=== PATIENT | female | born 1990 | race Caucasian/White ===

== ENCOUNTER 2018-05-15 11:58 | Emergency (ER) | payer OTHER, SELFPAY ==
[2018-05-15 12:03] VITALS: BP 106/70; PULSE 87; RESP 18; TEMP 36.9; O2SAT 100
--- NOTE | 2018-05-15 14:45 | ED.LOWEXIN ---
HPI - Extremity Injury (Lower) <Haley Witt PA-C - Last Filed: 05/15/18 20:35> General Chief Complaint: Extremity Injury, Lower Stated Complaint: KNEE PAIN Time Seen by Provider: 05/15/18 14:40 Source: patient Mode of arrival: ambulatory Limitations: no limitations History of Present Illness HPI Narrative: This 27-year-old female comes in due to a 10 year history of knee pain, right more than left. She states that 10 years ago, she injured her knee, bent down and felt a pop and had swelling and complete loss of range of motion with laxity. She states that she did see an orthopedist and had an MRI and no specific problem found. She states that she continues to have pain every day, constant at a low level, but significantly worse if she runs, bends or sitting on her knees. She states pain is around the kneecap area and also can be behind her knee. This has been worse recently after she has been running more and playing kick ball. She states she will have swelling in the knee after those activities, but denies any persistent laxity. She describes the pain as sharp at times. It does do better with rest and keeping pressure off of the area. She does not have other joint pain or swelling. No new fever or injury. She states that she already saw her PCP for this and was told it is runners knee, but she thinks there is something else contributing. She denies any possibility of as her is deployed and LMP finished yesterday Related Data Home Medications Medication Instructions Recorded Confirmed cetirizine [Zyrtec] 10 mg PO QPM 05/15/18 05/15/18 pseudoephedrine HCl [Sudogest] 1 tab PO QID PRN 05/15/18 05/15/18 sodium chloride [Deep Sea Nasal] 1 spray INTRANASAL DIRECTED 05/15/18 05/15/18 Allergies Allergy/AdvReac Type Severity Reaction Status Date / Time Sulfa (Sulfonamide Allergy Mild rash Unverified 03/11/18 12:40 Antibiotics) [SULFA (SULFONAMIDE ANTIBIOTICS)] vancomycin [VANCOMYCIN] Allergy Mild itching Unverified 03/11/18 12:40 Review of Systems <Haley Witt PA-C - Last Filed: 05/15/18 20:35> Review of Systems All systems reviewed & are unremarkable except as noted in HPI and below Exam <CONRAD He Last Filed: 05/15/18 20:35> Narrative Exam Narrative: GENERAL APPEARANCE: Patient sitting comfortably, in no distress. LUNGS: Clear to auscultation bilaterally. HEART: Rate and rhythm regular without murmur, normal S1 and S2, no S3 or S4. MUSCULOSKELETAL: Right knee there is no effusion. Very minimal tenderness inferior to the patella. She has full active and passive range of motion with minimal tenderness on full flexion. There is no laxity with varus, valgus stress or drawer testing Initial Vital Signs Initial Vital Signs: Vital Signs Temperature 98.4 F 05/15/18 12:03 Pulse Rate 87 05/15/18 12:03 Respiratory Rate 18 05/15/18 12:03 Blood Pressure 106/70 05/15/18 12:03 Pulse Oximetry 100 05/15/18 12:03 <DO Luis E Tesfaye Last Filed: 05/16/18 08:52> Initial Vital Signs Initial Vital Signs: Vital Signs Temperature 98.4 F 05/15/18 12:03 Pulse Rate 87 05/15/18 12:03 Respiratory Rate 18 05/15/18 12:03 Blood Pressure 106/70 05/15/18 12:03 Pulse Oximetry 100 05/15/18 12:03 Course <CONRAD He Last Filed: 05/15/18 20:35> Orders Ordered: ED Orders 05/15/18 14:56 XR knee RT 3V Stat Vital Signs - 8 hr 05/15/18 16:05 Pulse Rate 74 Respiratory Rate 16 Blood Pressure [Left Arm] 119/53 L Pulse Oximetry 100 <DO Luis E Tesfaye Last Filed: 05/16/18 08:52> Orders Ordered: ED Orders 05/15/18 14:56 XR knee RT 3V Stat Vital Signs - 8 hr 05/15/18 16:05 Pulse Rate 74 Respiratory Rate 16 Blood Pressure [Left Arm] 119/53 L Pulse Oximetry 100 MDM - Extremity Injury (Lower) <CONRAD He Last Filed: 05/15/18 20:35> Imaging Data knee: Radiologist's impression: View Report History [address] [address] XRay Report Signed Patient: Rachael Avila MR#: [id number] : 1990 Acct:[id number] Age/Sex: 27 / F Date of Service: 05/15/18 Loc: ED Accession Number: [id number] Procedure: XR knee RT 3V Ordering Provider: Haley Witt P.A-C PROCEDURE: XR KNEE RT 3V INDICATIONS: chronic pain s/p old injury TECHNIQUE: 3 views of the knee were acquired. COMPARISON: None. FINDINGS: Bones: No fractures or dislocations. No suspicious bony lesions. Soft tissues: Mild to moderate joint effusion. No suspicious soft tissue calcifications. IMPRESSION: Mild to moderate effusion. No visualized acute fracture or dislocation. However, if clinical concern and/or pain persist, short interval imaging followup in 7-10 days is recommended, as occult injury cannot be definitively excluded. Dictated by: Candelaria Morris M.D. on 05/15/2018 at 15:36 Approved by: Candelaria Morris M.D. on 05/15/2018 at 15:38 Discharge Plan Departure Patient Disposition: Home, Self-Care Clinical Impression: Knee pain Discharge Date/Time: 05/15/18 16:05 Interventions: ED Discharge Assessment Last Done: 05/15/18 16:05 Instructions: DI for Knee Pain Activity Restrictions/Additional Instructions: You should follow up with physical therapy as you've already planned. Also see your PCP as it may be helpful for you to see an orthopedist again given the chronicity of your pain and the xray finding of a little fluid in your knee joint today. It is possible that this pain is related to compensation for your old injury, so you may have chronic tendon and muscle weakness and strain (physical therapy should help with this). Continue your current medications. Wear the knee brace as needed/helpful. Prescriptions: No Action cetirizine [Zyrtec] 10 mg Tablet 10 mg PO QPM RF: 0 pseudoephedrine HCl [Sudogest] 60 mg tablet 1 tab PO QID PRN (Reason: Congestion) RF: 0 sodium chloride [Deep Sea Nasal] 0.65 % aerosol,spray 1 spray Intranasal DIRECTED RF: 0 Referrals: [email or web address] [Provider Group] <Cortney Alexis, - Last Filed: 05/16/18 08:52> Cosign ED Attending Cosignature Attestation: I was immediately available in the department for consultation. Documentation has been reviewed. I agree with assessment and plan.
--- NOTE | 2018-05-15 14:56 | DI.RAD.S_ITS ---
PROCEDURE: XR KNEE RT 3V INDICATIONS: chronic pain s/p old injury TECHNIQUE: 3 views of the knee were acquired. COMPARISON: None. FINDINGS: Bones: No fractures or dislocations. No suspicious bony lesions. Soft tissues: Mild to moderate joint effusion. No suspicious soft tissue calcifications. IMPRESSION: Mild to moderate effusion. No visualized acute fracture or dislocation. However, if clinical concern and/or pain persist, short interval imaging followup in 7-10 days is recommended, as occult injury cannot be definitively excluded. Dictated by: Candelaria Morris M.D. on 05/15/2018 at 15:36 Approved by: Candelaria Morris M.D. on 05/15/2018 at 15:38
--- NOTE | 2018-05-15 15:00 | ED_ITS ---
HPI - Extremity Injury (Lower) <Haley Witt PA-C - Last Filed: 05/15/18 20:35> General Chief Complaint: Extremity Injury, Lower Stated Complaint: KNEE PAIN Time Seen by Provider: 05/15/18 14:40 Source: patient Mode of arrival: ambulatory Limitations: no limitations History of Present Illness HPI Narrative: This 27-year-old female comes in due to a 10 year history of knee pain, right more than left. She states that 10 years ago, she injured her knee, bent down and felt a pop and had swelling and complete loss of range of motion with laxity. She states that she did see an orthopedist and had an MRI and no specific problem found. She states that she continues to have pain every day, constant at a low level, but significantly worse if she runs, bends or sitting on her knees. She states pain is around the kneecap area and also can be behind her knee. This has been worse recently after she has been running more and playing kick ball. She states she will have swelling in the knee after those activities, but denies any persistent laxity. She describes the pain as sharp at times. It does do better with rest and keeping pressure off of the area. She does not have other joint pain or swelling. No new fever or injury. She states that she already saw her PCP for this and was told it is runners knee, but she thinks there is something else contributing. She denies any possibility of as her is deployed and LMP finished yesterday Related Data Home Medications Medication Instructions Recorded Confirmed cetirizine [Zyrtec] 10 mg PO QPM 05/15/18 05/15/18 pseudoephedrine HCl [Sudogest] 1 tab PO QID PRN 05/15/18 05/15/18 sodium chloride [Deep Sea Nasal] 1 spray INTRANASAL DIRECTED 05/15/18 Allergies Allergy/AdvReac Type Severity Reaction Status Date / Time Sulfa (Sulfonamide Allergy Mild rash Unverified 03/11/18 12:40 Antibiotics) [SULFA (SULFONAMIDE ANTIBIOTICS)] vancomycin [VANCOMYCIN] Allergy Mild itching Unverified 03/11/18 12:40 Review of Systems <Haley Witt PA-C - Last Filed: 05/15/18 20:35> Review of Systems All systems reviewed & are unremarkable except as noted in HPI and below Exam <CONRAD He Last Filed: 05/15/18 20:35> Narrative Exam Narrative: GENERAL APPEARANCE: Patient sitting comfortably, in no distress. LUNGS: Clear to auscultation bilaterally. HEART: Rate and rhythm regular without murmur, normal S1 and S2, no S3 or S4. MUSCULOSKELETAL: Right knee there is no effusion. Very minimal tenderness inferior to the patella. She has full active and passive range of motion with minimal tenderness on full flexion. There is no laxity with varus, valgus stress or drawer testing Initial Vital Signs Initial Vital Signs: Vital Signs Temperature 98.4 F 05/15/18 12:03 Pulse Rate 87 05/15/18 12:03 Respiratory Rate 18 05/15/18 12:03 Blood Pressure 106/70 05/15/18 12:03 Pulse Oximetry 100 05/15/18 12:03 <DO Luis E Tesfaye Last Filed: 05/16/18 08:52> Initial Vital Signs Initial Vital Signs: Vital Signs Temperature 98.4 F 05/15/18 12:03 Pulse Rate 87 05/15/18 12:03 Respiratory Rate 18 05/15/18 12:03 Blood Pressure 106/70 05/15/18 12:03 Pulse Oximetry 100 05/15/18 12:03 Course <CONRAD He Last Filed: 05/15/18 20:35> Orders Ordered: ED Orders 05/15/18 14:56 XR knee RT 3V Stat Vital Signs - 8 hr 05/15/18 16:05 Pulse Rate 74 Respiratory Rate 16 Blood Pressure [Left Arm] 119/53 L Pulse Oximetry 100 <DO Luis E Tesfaye Last Filed: 05/16/18 08:52> Orders Ordered: ED Orders 05/15/18 14:56 XR knee RT 3V Stat Vital Signs - 8 hr 05/15/18 16:05 Pulse Rate 74 Respiratory Rate 16 Blood Pressure [Left Arm] 119/53 L Pulse Oximetry 100 MDM - Extremity Injury (Lower) <CONRAD He Last Filed: 05/15/18 20:35> Imaging Data knee: Radiologist's impression: View Report History [address] [address] XRay Report Signed Patient: Rachael Avila MR#: [id number] : 1990 Acct:[id number] Age/Sex: 27 / F Date of Service: 05/15/18 Loc: ED Accession Number: [id number] Procedure: XR knee RT 3V Ordering Provider: Haley Witt P.A-C PROCEDURE: XR KNEE RT 3V INDICATIONS: chronic pain s/p old injury TECHNIQUE: 3 views of the knee were acquired. COMPARISON: None. FINDINGS: Bones: No fractures or dislocations. No suspicious bony lesions. Soft tissues: Mild to moderate joint effusion. No suspicious soft tissue calcifications. IMPRESSION: Mild to moderate effusion. No visualized acute fracture or dislocation. However, if clinical concern and/or pain persist, short interval imaging followup in 7-10 days is recommended, as occult injury cannot be definitively excluded. Dictated by: Candelaria Morris M.D. on 05/15/2018 at 15:36 Approved by: Candelaria Morris M.D. on 05/15/2018 at 15:38 Discharge Plan Departure Patient Disposition: Home, Self-Care Clinical Impression: Knee pain Discharge Date/Time: 05/15/18 16:05 Interventions: ED Discharge Assessment Last Done: 05/15/18 16:05 Instructions: DI for Knee Pain Activity Restrictions/Additional Instructions: You should follow up with physical therapy as you've already planned. Also see your PCP as it may be helpful for you to see an orthopedist again given the chronicity of your pain and the xray finding of a little fluid in your knee joint today. It is possible that this pain is related to compensation for your old injury, so you may have chronic tendon and muscle weakness and strain ( physical therapy should help with this). Continue your current medications. Wear the knee brace as needed/helpful. Prescriptions: No Action cetirizine [Zyrtec] 10 mg Tablet 10 mg PO QPM RF: 0 pseudoephedrine HCl [Sudogest] 60 mg tablet 1 tab PO QID PRN (Reason: Congestion) RF: 0 sodium chloride [Deep Sea Nasal] 0.65 % aerosol,spray 1 spray Intranasal DIRECTED RF: 0 Referrals: [facility] [Provider Group] <Cortney Alexis, - Last Filed: 05/16/18 08:52> Cosign ED Attending Cosignature Attestation: I was immediately available in the department for consultation. Documentation has been reviewed. I agree with assessment and plan.
[2018-05-15 16:05] VITALS: BP 119/53; PULSE 74; RESP 16; O2SAT 100
== END 2018-05-15 16:05 | disposition home or self-care (01) ==
PROVIDERS: Emergency Provider Internal Medicine
DX: M25.569 Pain in unspecified knee (principal)
CPT/HCPCS: 73562; 99283

== ENCOUNTER 2018-07-08 12:01 | Day surgery (SDC) | payer OTHER, SELFPAY ==
[2018-07-08] VITALS (11 sets, daily range): BP systolic 96–121; BP diastolic 60–78; PULSE 71–98; RESP 10–20; TEMP 36.2–36.8; O2SAT 95–100; BMI 23.5
--- NOTE | 2018-07-08 | PATH_ITS ---
[facility] Accession Number: [id number] . 01 Material submitted: . PART A: GASTRIC BIOPSIES PART B: STOMACH BIOPSIES PART C: TERMINAL ILEUM PART D: RANDOM COLON . 01 Clinical history: . C: POSSIBLE ULCER . 02 Diagnosis: A. Designated Gastric Biopsies: Duodenal mucosa with no diagnostic abnormality. Negative for active inflammation, features of sprue, dysplasia or malignancy. . B. Stomach, Biopsies: Gastric antral and body mucosa with no diagnostic abnormality. No evidence of Helicobacter organisms on H/E stain. Negative for intestinal metaplasia, dysplasia or malignancy. . C. Terminal Ileum, Biopsy: Mild active ileitis; please see comment. Negative for granulomata, dysplasia or malignancy. . D. Random Colon, Biopsies: Colonic mucosa with no diagnostic abnormality. Negative for active or microscopic colitis. Negative for granulomata, dysplasia or malignancy. MRV/07/10/2018 . 02 Comment: Part C: The finding of mild active ileitis raises a differential diagnosis including infection, drug/toxin-induced injury and, in the appropriate clinical setting, idiopathic inflammatory bowel disease. . 02 Electronically signed: . Efrem Garza MD, PhD, Pathologist NPI- [id number] . 01 Gross description: . Part A: GASTRIC BIOPSIES: Received in formalin are 2 fragment(s) of mendosa, soft tissue measuring 0.4 x 0.3 x 0.1 cm to 0.1 x 0.1 x 0.1 cm submitted entirely in 1 cassette(s) Part B: STOMACH BIOPSIES: Received in formalin are multiple fragment(s) of mendosa, soft tissue measuring 0.5 x 0.2 x 0.1 cm in aggregate submitted entirely in 1 cassette(s) Part C: TERMINAL ILEUM: Received in formalin is 1 fragment(s) of mendosa, soft tissue measuring 0.4 x 0.4 x 0.3 cm submitted entirely in 1 cassette(s) Part D: RANDOM COLON: Received in formalin are multiple fragment(s) of mendosa, soft tissue measuring 0.5 x 0.5 x 0.1 cm in aggregate submitted entirely in 1 cassette(s) /CKI /CKI . 02 Pathologist provided ICD-10: R10.13, K52.9 . 02 CPT . 936829, 722477, 594282, 316043 Performed at: 01 [facility] [address] [id number] MD Alin aGrcias MD Phone: [phone] Performed at: 02 [facility] [address] [place] [id number] MD Fabrice Moser MD Phone: [phone]
[2018-07-08] MEDS: SODIUM CHLORIDE 0.9% 1,000 ML 21 ML IV ×2 (12:53→16:29)
[2018-07-08] MEDS: MIDAZOLAM 2 MG/2 ML VIAL 1 MG IV (13:18)
[2018-07-08] MEDS: fentaNYL 250 MCG/5 ML INJ IV (13:40)
[2018-07-08] MEDS: MIDAZOLAM 5 MG/5 ML VIAL IV (13:41)
--- NOTE | 2018-07-08 14:02 | SUR.PHASEII ---
Dr. Jackson unable to complete EGD/Colonscopy, is planning to re-do under general anesthesia. pt. and spouse aware of plan.
--- NOTE | 2018-07-08 16:16 | PM.OP.ENDO ---
Operative Date/Time/Diagnoses Date of procedure: 07/08/18 Time of procedure: 16:16 Pre-op diagnosis: See indications Procedure & Clinicians Study performed: EGD and colonoscopy Same procedure as scheduled: Yes Indications: Left lower quadrant pain, change in bowel movements, and bloating. Surgeon: Autumn Jackson Procedure Notes Procedure in detail: Procedure in detail: After informed consent was obtained the patient was placed in left lateral decubitus position. After moderate sedation attempts were made to pass the EGD scope but she woke from deeply sedated to struggling. It was elected therefore to delay until anesthesia was available to more deeply sedate her. After being intubated EGD scope was passed easily under direct visualization. Esophagus stomach and duodenum were carefully examined. On withdrawal retroflexed to the GE junction was performed. The scope was removed. The patient tolerated the procedure well. The colonoscope was then substituted. This was passed through the rectum and easily to the cecum IC valve and terminal ileum. On slow withdrawal the mucosa was carefully examined. Preparation was excellent. Scope was removed patient tolerated procedure well Blood loss none Complications none Sedation 2 mg Versed in the admit area due to anxiety. Eight additional mg given along with fentanyl 100 mcg prior to attempt at upper endoscopy. Remaining was done with general anesthesia. Findings EGD Normal esophagus Mild patchy antral erythema biopsied to rule out Helicobacter Prominent fullness in the greater curvature/fundus. This did not correspond to xiphoid impression by palpation. Normal duodenal bulb and sweep. Biopsies taken in the sweep to rule out celiac Colonoscopy Terminal ileum with 1 single erosion/ulcer. This was biopsied Normal colonoscopy to cecum. Biopsies taken randomly to rule out colitis. Otherwise negative colonoscopy to cecum Patient will follow up with Dr. Foster at her earliest convenience.
[2018-07-08] MEDS: LORazepam 2 MG/ML SYRINGE 0.25 MG IV (16:28)
[2018-07-08] MEDS: ONDANSETRON 4 MG/2 ML INJ IV (16:36)
--- NOTE | 2018-07-29 16:42 | PM.HP.1 ---
History of Present Illness Date Patient Seen: 07/08/18 Time Patient Seen: 08:43 Chief complaint: egd colonoscopy [id number] Narrative: Left lower quadrant pain bloating and GE reflux Patient History Medical History Allergic rhinitis (Acute) Breast abscess (Acute) Family & Social History Social History: household members spouse Tobacco & Substance use: Smoking Status Never smoker alcohol intake frequency 0-2 drinks per day Substance Use Type does not use Meds Home Medications Medication Instructions Recorded Confirmed Type cetirizine [Zyrtec] 10 mg PO QPM 05/15/18 07/08/18 History pseudoephedrine HCl [Sudogest] 1 tab PO QID PRN 05/15/18 07/08/18 History sodium chloride [Deep Sea Nasal] 1 spray INTRANASAL DIRECTED 05/15/18 07/08/18 History Allergies Allergy/AdvReac Type Severity Reaction Status Date / Time Sulfa (Sulfonamide Allergy Mild rash Verified 07/08/18 12:37 Antibiotics) [SULFA (SULFONAMIDE ANTIBIOTICS)] vancomycin [VANCOMYCIN] Allergy Mild itching Verified 07/08/18 12:37 Exam Vital Signs (past 8 hours): Oxygen Delivery Method Room Air Narrative Exam Narrative: Oropharynx free of lesion Chest clear to auscultation percussion Cardiac exam reveals no S3 or murmur Assessment & Plan Plan: Assessment/Plan Narrative: Plan is to perform both EGD and colonoscopy. Risks, benefits, alternatives have been explained.
== END 2018-07-08 17:05 | disposition home or self-care (01) ==
PROVIDERS: Visit Provider Internal Medicine Gastroenterology
PROC: 0DJD8ZZ Inspection of Lower Intestinal Tract, Via Natural or Artificial Opening Endoscopic (ICD-10-PCS; CPT 45378; 2018-07-08 13:00)
PROC: 0DJ08ZZ Inspection of Upper Intestinal Tract, Via Natural or Artificial Opening Endoscopic (ICD-10-PCS; CPT 43235; principal; 2018-07-08 16:00)
DX: K52.9 Noninfective gastroenteritis and colitis, unspecified (principal); R19.4 Change in bowel habit; R14.0 Abdominal distension (gaseous); F41.9 Anxiety disorder, unspecified
CPT/HCPCS: 45380; 43239; 88305; J2060; J2250; J2405; J3010

== ENCOUNTER 2018-07-12 22:52 | Emergency (ER) | payer OTHER, SELFPAY ==
[2018-07-12 23:03] VITALS: BP 108/64; PULSE 98; RESP 22; TEMP 36.6; O2SAT 100
--- NOTE | 2018-07-12 23:10 | ED.FEMALEGU ---
HPI - Female Genitourinary General Chief complaint: Vaginal Bleeding Stated complaint: vaginal bleeding Time Seen by Provider: 07/12/18 23:10 Source: patient Mode of arrival: ambulatory Limitations: no limitations History of Present Illness HPI Narrative: Patient is a 27-year-old female who presents with abdominal pain and vaginal bleeding. She started a new control medication she took her for 8 days she then was prepping for colonoscopy for routine evaluation all indigestion. She was unable to keep the prep down or any of her medications so she did not take the control pills for 4 days. Colonoscopy was 5 days ago. She started taking control again 2 days ago. However today she started having a excessive vaginal bleeding and increased pain. She said she soaked through 1 tampon an under 30 min. She thinks it has slowed down now. She is having increased pain from her colonoscopy she thinks. No nausea vomiting or fever. Related Data Home Medications Medication Instructions Recorded Confirmed cetirizine [Zyrtec] 10 mg PO QPM 05/15/18 07/08/18 pseudoephedrine HCl [Sudogest] 1 tab PO QID PRN 05/15/18 07/08/18 sodium chloride [Deep Sea Nasal] 1 spray INTRANASAL DIRECTED 05/15/18 07/08/18 Allergies Allergy/AdvReac Type Severity Reaction Status Date / Time Sulfa (Sulfonamide Allergy Mild rash Verified 07/08/18 12:37 Antibiotics) [SULFA (SULFONAMIDE ANTIBIOTICS)] vancomycin [VANCOMYCIN] Allergy Mild itching Verified 07/08/18 12:37 Review of Systems Review of Systems GENERAL: Denies chills, fatigue, malaise, fever, sweats, travel HEENT: Denies sinus pain, ear pain, sore throat, difficulty swallowing, neck pain RESPIRATORY: Denies dyspnea, cough, wheezing, hemoptysis, sputum. CARDIOVASCULAR: Denies chest pain, palpitations, orthopnea, edema GASTROINTESTINAL: See HPI : Denies dysuria, frequency, incontinence, hematuria, urinary retention, flank pain. [employer] ARCH[employer]ECT: See HPI MUSCULOSKELETAL: Denies weakness, joint pain, or bony pain SKIN: No rash, no erythema, no pruritus NEUROLOGIC: Denies weakness, dizziness, headache, numbness, change in speech, confusion PSYCHIATRIC: No concerning psychosocial issues. 12 point review of systems is negative except for those stated above and HPI [facility] Medical History Breast abscess (Acute) Social History household members: spouse Smoking Status: Never smoker Exam Initial Vital Signs Initial Vital Signs: Vital Signs Temperature 97.9 F 07/12/18 23:03 Pulse Rate 98 H 07/12/18 23:03 Respiratory Rate 22 07/12/18 23:03 Blood Pressure 108/64 07/12/18 23:03 Pulse Oximetry 100 07/12/18 23:03 GENERAL: Well-appearing, well-nourished and in no acute distress. HEENT: Head atraumatic,EOMI, pupils reactive, face symmetric, moist mucous membranes CARDIOVASCULAR: Regular rate and rhythm without murmurs, rubs or gallops. RESPIRATORY: Breath sounds equal bilaterally, no wheezes rales or rhonchi. ABDOMEN: Soft, with mild diffuse tenderness no localization. Normoactive bowel sounds all 4 quadrants. No guarding or rebound. PELVIC: External genitalia is normal, minimal vaginal bleeding, no vaginal discharge, no odor, cervical os is opn, no adnexal tenderness : No CVA tenderness EXTREMITIES: Normal range of motion, no clubbing or edema. Neurovascularly intact NEUROLOGICAL: Alert and oriented x4.Normal gait and speech. Cranial nerves II through XII grossly intact. SKIN: Warm, dry, no laceration, no petechiae, no rashes or lesions. Course Orders Ordered: ED Orders 07/12/18 23:35 CBC [Complete Blood Count AUTO DIFF] Stat CMP [Comprehensive Metabolic Panel] Stat 07/13/18 00:10 CT abdomen pelvis w con Stat 07/13/18 01:05 Test Serum,Qual Stat 07/13/18 01:20 Urinalysis and Microscopic Stat Discontinued Medications Ondansetron HCl (Zofran) 4 mg IV NOW ONE Stop: 07/12/18 23:51 Last Admin: 07/12/18 23:51 Dose: 4 mg Vital Signs - 8 hr 07/12/18 23:03 07/13/18 02:40 Temperature 97.9 F 98.5 F Pulse Rate 98 H 74 Respiratory Rate 22 18 Blood Pressure 108/64 94/51 L Pulse Oximetry 100 95 MDM - Female Genitourinary Lab Data Attestation: I reviewed the patient's lab results. Result diagrams: 07/12/18 23:35 07/12/18 23:35 Lab Results 07/12/18 07/12/18 07/12/18 Range/Units 23:35 23:35 23:35 WBC 5.8 (4.5-11.0) X10^3/uL RBC 4.11 (4.0-5.2) X10^6/uL Hgb 12.7 (12.0-16.0) g/dL Hct 36.4 (36-46) % MCV 88.6 (80-100) fL MCH 30.8 (26-34) PG MCHC 34.8 (30-36) % RDW 12.5 (11.6-14.8) % Plt Count 246 (150-400) X10^3/uL Neut % (Auto) 66.0 (50-75) % Lymph % (Auto) 26.5 (25-40) % [place] % (Auto) 5.3 (3-14) % Eos % (Auto) 1.4 L (2-4) % Baso % (Auto) 0.8 (0-2) % Neut # (Auto) 3900 (6230-6302) /uL Sodium 140 (137-145) mmol/L Potassium 3.8 (3.4-5.1) mmol/L Chloride 101 (98-107) mmol/L Carbon Dioxide 29 (22-32) mmol/L BUN 17 (7-17) mg/dL Creatinine 0.70 (0.52-1.04) mg/dL Estimated GFR > 60.0 (>60) mL/min BUN/Creatinine Ratio 24.3 H (6-22) Glucose 118 H (70-100) mg/dL Calcium 9.6 (8.4-10.2) mg/dL Total Bilirubin 0.3 (0.2-1.3) mg/dL AST 17 (14-36) IU/L ALT 24 (9-52) IU/L Alkaline Phosphatase 56 (38-126) U/L Total Protein 7.5 (6.3-8.2) g/dL Albumin 4.6 (3.5-5.0) g/dL Globulin 2.9 (1.7-4.1) g/dL Albumin/Globulin Ratio 1.6 (1.0-2.8) Serum , Qual Negative (Negative) Urine Color Urine Appearance Urine pH (4.5-8.0) Ur Specific [place] (1.000-1.035) Urine Protein (Negative) Urine Glucose (UA) (Normal) g/dL Urine Ketones (NEGATIVE) Urine Occult Blood (Negative) Urine Nitrate (Negative) Urine Bilirubin (NEGATIVE) Urine Urobilinogen (0.2) E.U./dL Ur Leukocyte Esterase (NEGATIVE) Urine RBC (0-5/HPF) Urine WBC (0-5/HPF) Urine Bacteria (None) Ur Culture Indicated? Micro UA Comment 07/13/18 Range/Units 01:20 WBC (4.5-11.0) X10^3/uL RBC (4.0-5.2) X10^6/uL Hgb (12.0-16.0) g/dL Hct (36-46) % MCV (80-100) fL MCH (26-34) PG MCHC (30-36) % RDW (11.6-14.8) % Plt Count (150-400) X10^3/uL Neut % (Auto) (50-75) % Lymph % (Auto) (25-40) % [place] % (Auto) (3-14) % Eos % (Auto) (2-4) % Baso % (Auto) (0-2) % Neut # (Auto) (8512-4739) /uL Sodium (137-145) mmol/L Potassium (3.4-5.1) mmol/L Chloride (98-107) mmol/L Carbon Dioxide (22-32) mmol/L BUN (7-17) mg/dL Creatinine (0.52-1.04) mg/dL Estimated GFR (>60) mL/min BUN/Creatinine Ratio (6-22) Glucose (70-100) mg/dL Calcium (8.4-10.2) mg/dL Total Bilirubin (0.2-1.3) mg/dL AST (14-36) IU/L ALT (9-52) IU/L Alkaline Phosphatase (38-126) U/L Total Protein (6.3-8.2) g/dL Albumin (3.5-5.0) g/dL Globulin (1.7-4.1) g/dL Albumin/Globulin Ratio (1.0-2.8) Serum , Qual (Negative) Urine Color Yellow Urine Appearance Clear Urine pH 6.5 (4.5-8.0) Ur Specific [place] 1.010 (1.000-1.035) Urine Protein Negative (Negative) Urine Glucose (UA) Negative (Normal) g/dL Urine Ketones Negative (NEGATIVE) Urine Occult Blood 2+ H (Negative) Urine Nitrate Negative (Negative) Urine Bilirubin Negative (NEGATIVE) Urine Urobilinogen 0.2 (0.2) E.U./dL Ur Leukocyte Esterase Negative (NEGATIVE) Urine RBC None seen (0-5/HPF) Urine WBC None seen (0-5/HPF) Urine Bacteria None seen (None) Ur Culture Indicated? 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 Colonic diverticulosis without evidence of acute diverticulitis MDM Narrative Medical decision making narrative: Patient is likely having abnormal vaginal bleeding due to non consistent control pills. Bleeding has slowed down while she has been here. She is hemodynamically stable. CT does not show any abnormality from the recent colonoscopy. Discharge Plan Departure Patient Disposition: Home, Self-Care Clinical Impression: Vaginal bleeding Discharge Date/Time: 07/13/18 02:43 Interventions: ED Discharge Assessment Last Done: 07/13/18 02:40 Instructions: DI for Vaginal Bleeding Activity Restrictions/Additional Instructions: *You have been diagnosed with vaginal bleeding *What to do: Likely from inconsistent control pills. Take consistently or not at all *Continue to take medications as directed *Follow up with your primary care provider in 2-3 days *Return to ER if you should have increased abdominal pain, bleeding through more than 1 large pad or tampon in our trauma dizziness lightheadedness, passing out or any new, worsening or concerning symptoms Prescriptions: No Action cetirizine [Zyrtec] 10 mg Tablet 10 mg PO QPM RF: 0 pseudoephedrine HCl [Sudogest] 60 mg tablet 1 tab PO QID PRN (Reason: Congestion) RF: 0 sodium chloride [Deep Sea Nasal] 0.65 % aerosol,spray 1 spray Intranasal DIRECTED RF: 0
[2018-07-12 23:49] LABS: Add Manual Diff / Slide Review NO; Basophils Percent Auto 0.8 % (0-2); Eosinophils Percent Auto 1.4 % (2-4); Hematocrit 36.4 % (36-46); Hemoglobin 12.7 g/dL (12.0-16.0); Lymphocytes Percent Auto 26.5 % (25-40); Mean Corpuscular HGB Conc 34.8 % (30-36); Mean Corpuscular Hemoglobin 30.8 PG (26-34); Mean Corpuscular Volume 88.6 fL (80-100); Monocytes Percent Auto 5.3 % (3-14); Neutrophils Absolute Auto 3900 /uL (3000-5900); Platelet Count 246 X10^3/uL (150-400); Red Blood Cell Count 4.11 X10^6/uL (4.0-5.2); Red Cell Distribution Width 12.5 % (11.6-14.8); White Blood Cell Count 5.8 X10^3/uL (4.5-11.0)
[2018-07-12] MEDS: ONDANSETRON 4 MG/2 ML INJ IV (23:51)
[2018-07-12 23:56] LABS: Alanine Aminotransferase 24 IU/L (9-52); Albumin 4.6 g/dL (3.5-5.0); Albumin Globulin Ratio 1.6 (1.0-2.8); Alkaline Phosphatase 56 U/L (38-126); Aspartate Aminotransferase 17 IU/L (14-36); BUN Creatinine Ratio 24.3 (6-22); Bilirubin Total 0.3 mg/dL (0.2-1.3); Blood Urea Nitrogen 17 mg/dL (7-17); Calcium 9.6 mg/dL (8.4-10.2); Carbon Dioxide 29 mmol/L (22-32); Chloride 101 mmol/L (98-107); Estimated Glomerular Filt Rate > 60.0 mL/min (>60); Globulin 2.9 g/dL (1.7-4.1); Glucose 118 mg/dL (70-100); HEMOLYSIS < 15 (0-50); Potassium 3.8 mmol/L (3.4-5.1); Sodium 140 mmol/L (137-145); Total Protein 7.5 g/dL (6.3-8.2)
--- NOTE | 2018-07-13 00:10 | DI.CT.S_ITS ---
PROCEDURE: CT ABDOMEN PELVIS W CON INDICATIONS: pain, s/p colonoscopy TECHNIQUE: After the administration of intravenous contrast, 5 mm thick sections acquired from the diaphragm to the symphysis. 5 mm coronal and sagittal reformats were acquired. For radiation dose reduction, the following was used: automated exposure control, adjustment of mA and/or kV according to patient size. COMPARISON: None. FINDINGS: Image quality: Excellent. ABDOMEN: Lung bases: Lung bases are clear. Heart size is normal. Solid organs: Liver is normal in size and enhancement. There is a 9 mm subcapsular hypodensity in the posterolateral right lobe of liver, attenuation 57, likely hemangioma but indeterminate. Gallbladder is clear with normal wall thickness.. Biliary system is non dilated. Pancreas enhances normally. Spleen is normal in size and enhancement. No adrenal nodules. Kidneys demonstrate normal size and enhancement, without hydronephrosis. There are 8mm cortical radiolucencies in the lateral superior pole and anterior lower pole of the left kidney, too small to characterize. Peritoneum and bowel: Bowel loops demonstrate normal wall thickness and caliber. Mild colonic diverticulosis. No free air. Trace free fluid, likely physiological. Nodes and vessels: No retroperitoneal or mesenteric adenopathy by size criteria. Aorta and inferior vena cava are normal in size. Miscellaneous: Fat filled umbilical hernia. PELVIS: Genitourinary: Bladder wall thickness is normal. Uterus and ovaries appear normal. Miscellaneous: No inguinal hernias or adenopathy. Bones: No suspicious bony lesions. No vertebral body compression fractures. IMPRESSION: 1. No pneumoperitoneum to indicate perforation. 2. Colonic diverticulosis without diverticulitis. 3. Fat filled umbilical hernia. 4. Hypodensities in the left kidney and right lobe of liver are indeterminate, likely renal cysts and hepatic hemangioma. Suggest abdomen ultrasound for further evaluation. Findings are concordant with the preliminary report. Dictated by: Renato Kang M.D. on 07/13/2018 at 8:18 Approved by: Renato Kang M.D. on 07/13/2018 at 8:24
--- NOTE | 2018-07-13 00:13 | ED_ITS ---
HPI - Female Genitourinary General Chief complaint: Vaginal Bleeding Stated complaint: vaginal bleeding Time Seen by Provider: 07/12/18 23:10 Source: patient Mode of arrival: ambulatory Limitations: no limitations History of Present Illness HPI Narrative: Patient is a 27-year-old female who presents with abdominal pain and vaginal bleeding. She started a new control medication she took her for 8 days she then was prepping for colonoscopy for routine evaluation all indigestion. She was unable to keep the prep down or any of her medications so she did not take the control pills for 4 days. Colonoscopy was 5 days ago. She started taking control again 2 days ago. However today she started having a excessive vaginal bleeding and increased pain. She said she soaked through 1 tampon an under 30 min. She thinks it has slowed down now. She is having increased pain from her colonoscopy she thinks. No nausea vomiting or fever. Related Data Home Medications Medication Instructions Recorded Confirmed cetirizine [Zyrtec] 10 mg PO QPM 05/15/18 07/08/18 pseudoephedrine HCl [Sudogest] 1 tab PO QID PRN 05/15/18 07/08/18 sodium chloride [Deep Sea Nasal] 1 spray INTRANASAL DIRECTED 05/15/18 Allergies Allergy/AdvReac Type Severity Reaction Status Date / Time Sulfa (Sulfonamide Allergy Mild rash Verified 07/08/18 12:37 Antibiotics) [SULFA (SULFONAMIDE ANTIBIOTICS)] vancomycin [VANCOMYCIN] Allergy Mild itching Verified 07/08/18 12:37 Review of Systems Review of Systems GENERAL: Denies chills, fatigue, malaise, fever, sweats, travel HEENT: Denies sinus pain, ear pain, sore throat, difficulty swallowing, neck pain RESPIRATORY: Denies dyspnea, cough, wheezing, hemoptysis, sputum. CARDIOVASCULAR: Denies chest pain, palpitations, orthopnea, edema GASTROINTESTINAL: See HPI : Denies dysuria, frequency, incontinence, hematuria, urinary retention, flank pain. 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 12 point review of systems is negative except for those stated above and HPI [facility] Medical History Breast abscess (Acute) Social History household members: spouse Smoking Status: Never smoker Exam Initial Vital Signs Initial Vital Signs: Vital Signs Temperature 97.9 F 07/12/18 23:03 Pulse Rate 98 H 07/12/18 23:03 Respiratory Rate 22 07/12/18 23:03 Blood Pressure 108/64 07/12/18 23:03 Pulse Oximetry 100 07/12/18 23:03 GENERAL: Well-appearing, well-nourished and in no acute distress. HEENT: Head atraumatic,EOMI, pupils reactive, face symmetric, moist mucous membranes CARDIOVASCULAR: Regular rate and rhythm without murmurs, rubs or gallops. RESPIRATORY: Breath sounds equal bilaterally, no wheezes rales or rhonchi. ABDOMEN: Soft, with mild diffuse tenderness no localization. Normoactive bowel sounds all 4 quadrants. No guarding or rebound. PELVIC: External genitalia is normal, minimal vaginal bleeding, no vaginal discharge, no odor, cervical os is opn, no adnexal tenderness : No CVA tenderness EXTREMITIES: Normal range of motion, no clubbing or edema. Neurovascularly intact NEUROLOGICAL: Alert and oriented x4.Normal gait and speech. Cranial nerves II through XII grossly intact. SKIN: Warm, dry, no laceration, no petechiae, no rashes or lesions. Course Orders Ordered: ED Orders 07/12/18 23:35 CBC [Complete Blood Count AUTO DIFF] Stat CMP [Comprehensive Metabolic Panel] Stat 07/13/18 00:10 CT abdomen pelvis w con Stat 07/13/18 01:05 Test Serum,Qual Stat 07/13/18 01:20 Urinalysis and Microscopic Stat Discontinued Medications Ondansetron HCl (Zofran) 4 mg IV NOW ONE Stop: 07/12/18 23:51 Last Admin: 07/12/18 23:51 Dose: 4 mg Vital Signs - 8 hr 07/12/18 23:03 07/13/18 02:40 Temperature 97.9 F 98.5 F Pulse Rate 98 H 74 Respiratory Rate 22 18 Blood Pressure 108/64 94/51 L Pulse Oximetry 100 95 MDM - Female Genitourinary Lab Data Attestation: I reviewed the patient's lab results. Result diagrams: 07/12/18 23:35 07/12/18 23:35 Lab Results 07/12/18 07/12/18 07/12/18 Range/Units 23:35 23:35 23:35 WBC 5.8 (4.5-11.0) X10^3/uL RBC 4.11 (4.0-5.2) X10^6/uL Hgb 12.7 (12.0-16.0) g/dL Hct 36.4 (36-46) % MCV 88.6 (80-100) fL MCH 30.8 (26-34) PG MCHC 34.8 (30-36) % RDW 12.5 (11.6-14.8) % Plt Count 246 (150-400) X10^3/uL Neut % (Auto) 66.0 (50-75) % Lymph % (Auto) 26.5 (25-40) % [place] % (Auto) 5.3 (3-14) % Eos % (Auto) 1.4 L (2-4) % Baso % (Auto) 0.8 (0-2) % Neut # (Auto) 3900 (0910-6861) /uL Sodium 140 (137-145) mmol/L Potassium 3.8 (3.4-5.1) mmol/L Chloride 101 (98-107) mmol/L Carbon Dioxide 29 (22-32) mmol/L BUN 17 (7-17) mg/dL Creatinine 0.70 (0.52-1.04) mg/dL Estimated GFR > 60.0 (>60) mL/min BUN/Creatinine Ratio 24.3 H (6-22) Glucose 118 H (70-100) mg/dL Calcium 9.6 (8.4-10.2) mg/dL Total Bilirubin 0.3 (0.2-1.3) mg/dL AST 17 (14-36) IU/L ALT 24 (9-52) IU/L Alkaline Phosphatase 56 (38-126) U/L Total Protein 7.5 (6.3-8.2) g/dL Albumin 4.6 (3.5-5.0) g/dL Globulin 2.9 (1.7-4.1) g/dL Albumin/Globulin Ratio 1.6 (1.0-2.8) Serum , Qual Negative (Negative) Urine Color Urine Appearance Urine pH (4.5-8.0) Ur Specific [place] (1.000-1.035) Urine Protein (Negative) Urine Glucose (UA) (Normal) g/dL Urine Ketones (NEGATIVE) Urine Occult Blood (Negative) Urine Nitrate (Negative) Urine Bilirubin (NEGATIVE) Urine Urobilinogen (0.2) E.U./dL Ur Leukocyte Esterase (NEGATIVE) Urine RBC (0-5/HPF) Urine WBC (0-5/HPF) Urine Bacteria (None) Ur Culture Indicated? Micro UA Comment 07/13/18 Range/Units 01:20 WBC (4.5-11.0) X10^3/uL RBC (4.0-5.2) X10^6/uL Hgb (12.0-16.0) g/dL Hct (36-46) % MCV (80-100) fL MCH (26-34) PG MCHC (30-36) % RDW (11.6-14.8) % Plt Count (150-400) X10^3/uL Neut % (Auto) (50-75) % Lymph % (Auto) (25-40) % [place] % (Auto) (3-14) % Eos % (Auto) (2-4) % Baso % (Auto) (0-2) % Neut # (Auto) (1486-1756) /uL Sodium (137-145) mmol/L Potassium (3.4-5.1) mmol/L Chloride (98-107) mmol/L Carbon Dioxide (22-32) mmol/L BUN (7-17) mg/dL Creatinine (0.52-1.04) mg/dL Estimated GFR (>60) mL/min BUN/Creatinine Ratio (6-22) Glucose (70-100) mg/dL Calcium (8.4-10.2) mg/dL Total Bilirubin (0.2-1.3) mg/dL AST (14-36) IU/L ALT (9-52) IU/L Alkaline Phosphatase (38-126) U/L Total Protein (6.3-8.2) g/dL Albumin (3.5-5.0) g/dL Globulin (1.7-4.1) g/dL Albumin/Globulin Ratio (1.0-2.8) Serum , Qual (Negative) Urine Color Yellow Urine Appearance Clear Urine pH 6.5 (4.5-8.0) Ur Specific [place] 1.010 (1.000-1.035) Urine Protein Negative (Negative) Urine Glucose (UA) Negative (Normal) g/dL Urine Ketones Negative (NEGATIVE) Urine Occult Blood 2+ H (Negative) Urine Nitrate Negative (Negative) Urine Bilirubin Negative (NEGATIVE) Urine Urobilinogen 0.2 (0.2) E.U./dL Ur Leukocyte Esterase Negative (NEGATIVE) Urine RBC None seen (0-5/HPF) Urine WBC None seen (0-5/HPF) Urine Bacteria None seen (None) Ur Culture Indicated? 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 Colonic diverticulosis without evidence of acute diverticulitis MDM Narrative Medical decision making narrative: Patient is likely having abnormal vaginal bleeding due to non consistent control pills. Bleeding has slowed down while she has been here. She is hemodynamically stable. CT does not show any abnormality from the recent colonoscopy. Discharge Plan Departure Patient Disposition: Home, Self-Care Clinical Impression: Vaginal bleeding Discharge Date/Time: 07/13/18 02:43 Interventions: ED Discharge Assessment Last Done: 07/13/18 02:40 Instructions: DI for Vaginal Bleeding Activity Restrictions/Additional Instructions: *You have been diagnosed with vaginal bleeding *What to do: Likely from inconsistent control pills. Take consistently or not at all *Continue to take medications as directed *Follow up with your primary care provider in 2-3 days *Return to ER if you should have increased abdominal pain, bleeding through more than 1 large pad or tampon in our trauma dizziness lightheadedness, passing out or any new, worsening or concerning symptoms Prescriptions: No Action cetirizine [Zyrtec] 10 mg Tablet 10 mg PO QPM RF: 0 pseudoephedrine HCl [Sudogest] 60 mg tablet 1 tab PO QID PRN (Reason: Congestion) RF: 0 sodium chloride [Deep Sea Nasal] 0.65 % aerosol,spray 1 spray Intranasal DIRECTED RF: 0
[2018-07-13 01:19] LABS: Pregnancy Test Serum,Qual Negative (Negative)
[2018-07-13 01:28] LABS: Bacteria Urine None Seen; RBC Urine None Seen (0-5/HPF); WBC Urine None Seen (0-5/HPF)
[2018-07-13 01:29] LABS: Appearance Urine UA CLEAR; Bilirubin Urine UA NEGATIVE (NEGATIVE); Color Urine UA YELLOW; Glucose Urine UA NEGATIVE (Normal); Ketones Urine UA NEGATIVE (NEGATIVE); Leukocyte Esterase Urine UA NEGATIVE (NEGATIVE); Nitrite Urine UA Negative (Negative); Occult Blood Urine UA 2+ (Negative); Protein Urine UA NEGATIVE (Negative); Urobilinogen Urine UA 0.2 E.U./dL (0.2); pH Urine UA 6.5 (4.5-8.0)
[2018-07-13 01:35] LABS: Culture Indicated Urine Cult Not Indicated; Urine Comments Microscopic Normal
--- NOTE | 2018-07-13 01:42 | PC.NURSE ---
Stand by assist for pelvic exam with Dr. Alexis. Pt tolerated well
[2018-07-13 02:40] VITALS: BP 94/51; PULSE 74; RESP 18; TEMP 36.9; O2SAT 95
== END 2018-07-13 02:43 | disposition home or self-care (01) ==
PROVIDERS: Emergency Provider Emergency Medicine
DX: N93.9 Abnormal uterine and vaginal bleeding, unspecified (principal)
CPT/HCPCS: 74177; 80053; 81001; 81003; 81025; 84703; 85025; 96374; 99282; 99284; J2405; Q9967

== ENCOUNTER → 2018-07-13 09:41 | Outpatient (CLI) | payer OTHER, SELFPAY ==
--- NOTE | 2018-07-13 | DI.MRI.S_ITS ---
PROCEDURE: MR ABDOMEN WO/W CON INDICATIONS: ABNORMAL FINDINGS OF LIVER AND BILIARY TRACT TECHNIQUE: Coronal HASTE, axial 2D FLASH in- and [id number]; axial breath-hold T2 FSE. Dynamic axial VIBE during the administration of contrast; post-contrast coronal VIBE or 2D FLASH with fat saturation from the hepatic dome to the iliac crests. Optional diffusion weighted imaging and ADC may be performed. COMPARISON: [facility], CT, CT ABDOMEN PELVIS W CON, 07/13/2018, 0:33. FINDINGS: Image quality: Excellent. Lung bases: No basal pleural effusions. Heart size is normal. Solid organs: Liver is normal in size and enhancement except for a small subcapsular hepatic hemangioma present at the right posterior hepatic segment showing discontinuous peripheral nodular enhancement and centripetal fill-in is delayed contrast enhancement. Gallbladder appears normal. Biliary system is non dilated. Pancreas is normal in morphology. Spleen is normal in size and enhancement. No adrenal nodules. Both kidneys demonstrate normal size and enhancement, without hydronephrosis. At the anterolateral aspect of the mid left renal cortex in an area of hyperdense subcapsular hypodensity seen on CT scanning 07/13/18 there is high grade T1 signal indicating proteinaceous cyst contents versus old blood products within that structure at this site without perceptible in contrast enhancement Nodes and vessels: No retroperitoneal or mesenteric adenopathy by size criteria. Aorta and inferior vena cava are normal in size. Bowel and peritoneum: Unenhanced bowel loops are normal in caliber. No free fluid. Bones and soft tissues: No ventral hernias. Bone marrow is normal in overall signal. IMPRESSION: No followup recommended. Small subcapsular right hepatic lobe hemangioma and a left renal proteinaceous cyst or structure containing old blood products are the cause of the 2 hypodensities seen as incidental findings during CT scanning for pain after colonoscopy 07/13/18. Dictated by: Farooq Hart M.D. on 07/14/2018 at 13:55 Approved by: Farooq Hart M.D. on 07/14/2018 at 17:00
== END ==
PROVIDERS: Visit Provider Internal Medicine Gastroenterology
DX: D18.09 Hemangioma of other sites (principal); R93.2 Abnormal findings on diagnostic imaging of liver and biliary tract; K42.9 Umbilical hernia without obstruction or gangrene; K57.90 Diverticulosis of intestine, part unspecified, without perforation or abscess without bleeding
CPT/HCPCS: 74183; A9579

== ENCOUNTER 2018-10-15 16:53 | Emergency (ER) | payer OTHER, SELFPAY ==
[2018-10-15 17:07] VITALS: BP 100/66; PULSE 92; RESP 15; TEMP 36.8; O2SAT 99; BMI 24.5
--- NOTE | 2018-10-15 18:58 | ED_ITS ---
HPI - Abdominal Pain General Chief Complaint: Abdominal Pain Stated Complaint: LT LOWER ABD PAIN Time Seen by Provider: 10/15/18 18:18 Source: patient Mode of arrival: ambulatory Limitations: no limitations History of Present Illness HPI narrative: Patient is a 27-year-old female who has had left lower abdomen pain off and on for 2 years now. She has had CT scans, MRI, colonoscopy, upper endoscopy, for evaluation of these pains. She returns again today for continued left lower quadrant pain for the past 5 days. No change in bowel habits. No history of sexually transmitted infections. She states she has no concern for STI today. She is not on control. No vaginal bleeding. No urinary symptoms. No change in bowel habits. Related Data Home Medications Medication Instructions Recorded Confirmed cetirizine [Zyrtec] 10 mg PO QPM 05/15/18 07/08/18 pseudoephedrine HCl [Sudogest] 1 tab PO QID PRN 05/15/18 07/08/18 sodium chloride [Deep Sea Nasal] 1 spray INTRANASAL DIRECTED 05/15/18 norgestimate-ethinyl estradiol 1 tab PO DAILY 10/15/18 10/15/18 [Mononessa (28)] Allergies Allergy/AdvReac Type Severity Reaction Status Date / Time Sulfa (Sulfonamide Allergy Mild rash Verified 10/15/18 17:07 Antibiotics) [SULFA (SULFONAMIDE ANTIBIOTICS)] vancomycin [VANCOMYCIN] Allergy Mild itching Verified 10/15/18 17:07 Review of Systems Constitutional Denies fever(s) Cardiovascular Denies chest pain and Denies dyspnea Respiratory Denies dyspnea Gastrointestinal Gastrointestinal: Reports abdominal pain, Denies change in stool character, Denies diarrhea, Denies nausea and Denies vomiting Genitourinary Denies dysuria, Denies urinary incontinence, Denies urinary hesitancy, Denies urinary urgency and Denies vaginal discharge Musculoskeletal Denies myalgias and Denies arthralgias Integumentary/Breasts Denies lesions and Denies rash Hematologic/Lymphatic Denies easy bleeding and Denies easy bruising FOR[facility]LY [facility] Medical History Allergic rhinitis (Acute) Breast abscess (Acute) Surgical History Previous section (Acute) Social History household members: spouse Smoking Status: Never smoker Exam Initial Vital Signs Initial Vital Signs: Vital Signs Temperature 98.3 F 10/15/18 17:07 Pulse Rate 92 H 10/15/18 17:07 Respiratory Rate 15 10/15/18 17:07 Blood Pressure 100/66 10/15/18 17:07 Pulse Oximetry 99 10/15/18 17:07 Const General: cooperative, healthy appearing, comfortable, well developed, well groomed and No acute distress Orientation: alert, awake and oriented x3 HENMT Head: normal to inspection and normocephalic Resp Effort & Inspection: normal respiratory effort Cardio Rate: regular rate GI Inspection: non-distended Palpation: soft, No firm, No guarding and tender (Left lower quadrant left adnexa) Back/Spine/Pelvis Back: No CVA tenderness Skin Lesions: no lesions Rashes: no rashes Neuro General: alert, awake and oriented x3 Extrem General: normal to inspection and capillary refill normal Psych Appearance: grossly normal and well kempt Course Orders Ordered: ED Orders 10/15/18 19:17 US pelvic complete Stat Vital Signs - 8 hr 10/15/18 20:43 Temperature 98.4 F Pulse Rate 90 Respiratory Rate 16 Blood Pressure 105/68 Pulse Oximetry 98 MDM - Abdominal Pain Lab Data Point of care testing: Point of Care Testing Test Results Negative Urine Dip Bedside Urine Glucose Negative Bedside Urine Bilirubin - Negative Bedside Urine Ketone - Negative Urine Specific [place] 1.025 Bedside Urine Occult Blood +/- Bedside Urine pH 6.0 Bedside Urine Protein - Negative Bedside Urine Urobilinogen - Negative Bedside Urine Nitrite - Negative Bedside Urine Leukocytes - Negative Esterase Imaging Data Pelvic ultrasound: Radiologist's impression: [address] [address] Ultrasound Report Signed Patient: Rachael Avila MMR#: [id number] : 1990Acct:[id number] Age/Sex: 27 / FDate of Service: 10/15/18 Loc: ED Accession Number: [id number] Procedure: US pelvic complete Ordering Provider: Dimitri Díaz D.O. PROCEDURE: US PELVIC COMPLETE INDICATIONS: LEFT ADNEXAL PAIN TECHNIQUE: Real-time scanning was performed of the pelvic organs, with image documentation. Additional endovaginal scanning was necessary due to incomplete visualization of the adnexal and endometrial structures by transabdominal scanning. COMPARISON: None. FINDINGS: Transabdominal scanning: Limited scanning through the kidneys shows no hydronephrosis. No pathologic free abdominal or pelvic fluid. Endovaginal scanning: Uterus: Uterus is normal in size at 6.8 x 3.5 x 4.4 cm. The endometrium measures 8.3 mm in combined thickness. Ovaries: Right ovary is within normal limits. There is a complex nonvascular left ovarian cyst measuring 42 mm x 35 mm x 46 mm. IMPRESSION: 1. Complex left ovarian cyst. Followup pelvic ultrasound in 6 weeks is recommended to ensure resolution, and to exclude underlying malignancy. Dictated by: Juan Resendez M.D. on 10/15/2018 at 20:32 Approved by: Juan Resendez M.D. on 10/15/2018 at 20:34 MDM Narrative Medical decision making narrative: Patient with a relatively benign abdominal exam. Urine unremarkable. Ultrasound does show a complex left ovarian cyst. Patient was informed that this does need follow-up in 6 weeks. This is most likely the cause of her symptoms. She is not having any urinary symptoms. She states that she is not concerned about sexually transmitted diseases. She states that this is the same pain that she has had off and on for the past 2 years. I feel that PID is less likely. test was negative. Hold on further workup today. Patient does have a primary doctor. She was informed to follow up with her primary doctor. She was given return precautions. She expressed understanding and agreement with plan. Discharge Plan Departure Patient Disposition: Home Clinical Impression: Ovarian cyst Discharge Date/Time: 10/15/18 20:45 Interventions: ED Discharge Assessment Last Done: 10/15/18 20:43 Instructions: DI for Ovarian Cyst Activity Restrictions/Additional Instructions: There was a complex left ovarian cyst found on the ultrasound today. They do recommend a follow-up ultrasound in 6 weeks. This can be ordered by your primary care doctor. Continue all of your medications as directed. Return to the emergency department for any new or worsening symptoms Prescriptions: No Action norgestimate-ethinyl estradiol [Mononessa (28)] 0.25-35 mg-mcg tablet 1 tab PO DAILY RF: 0 cetirizine [Zyrtec] 10 mg Tablet 10 mg PO QPM RF: 0 pseudoephedrine HCl [Sudogest] 60 mg tablet 1 tab PO QID PRN (Reason: Congestion) RF: 0 sodium chloride [Deep Sea Nasal] 0.65 % aerosol,spray 1 spray Intranasal DIRECTED RF: 0
--- NOTE | 2018-10-15 19:17 | DI.US.S_ITS ---
PROCEDURE: US PELVIC COMPLETE INDICATIONS: LEFT ADNEXAL PAIN TECHNIQUE: Real-time scanning was performed of the pelvic organs, with image documentation. Additional endovaginal scanning was necessary due to incomplete visualization of the adnexal and endometrial structures by transabdominal scanning. COMPARISON: None. FINDINGS: Transabdominal scanning: Limited scanning through the kidneys shows no hydronephrosis. No pathologic free abdominal or pelvic fluid. Endovaginal scanning: Uterus: Uterus is normal in size at 6.8 x 3.5 x 4.4 cm. The endometrium measures 8.3 mm in combined thickness. Ovaries: Right ovary is within normal limits. There is a complex nonvascular left ovarian cyst measuring 42 mm x 35 mm x 46 mm. IMPRESSION: 1. Complex left ovarian cyst. Followup pelvic ultrasound in 6 weeks is recommended to ensure resolution, and to exclude underlying malignancy. Dictated by: Juan Resendez M.D. on 10/15/2018 at 20:32 Approved by: Juan Resendez M.D. on 10/15/2018 at 20:34
[2018-10-15 20:43] VITALS: BP 105/68; PULSE 90; RESP 16; TEMP 36.9; O2SAT 98
== END 2018-10-15 20:45 | disposition home or self-care (01) ==
PROVIDERS: Emergency Provider Emergency Medicine
DX: N83.202 Unspecified ovarian cyst, left side (principal)
CPT/HCPCS: 76830; 76856; 81003; 81025; 99282; 99284